=== PATIENT | female | born 1980 | race Asian ===

== ENCOUNTER 2022-04-25 10:09 | Emergency (ER) | payer OTHER ==
[2022-04-25 10:22] VITALS: BP 128/85; PULSE 72; RESP 18; TEMP 98; BMI 20.3
[2022-04-25] MEDS ORDERED: ACETAMINOPHEN 325 MG TABLET (FP) PO ONE (10:54)
[2022-04-25] MEDS ORDERED: ACETAMINOPHEN 325 MG TABLET (FP) ONE (10:55)
== END 2022-04-25 11:10 | disposition home or self-care (01) ==
LOC: JERFT 10:09
DX: M54.50 Low back pain, unspecified (principal)
CPT/HCPCS: 99283-25